=== PATIENT | male | born 1955 | race Caucasian/White ===

== ENCOUNTER → 2018-10-19 | Outpatient (CLI) | payer OTHER ==
--- NOTE | 2018-10-19 10:58 | KCIC ---
Examination: MRI of the right shoulder without contrast HISTORY: History of right shoulder pain COMPARISON: None available TECHNIQUE: Multiplanar, multisequence MR imaging of the right shoulder were performed without contrast FINDINGS: The long head of the biceps tendon within the bicipital groove. The attachment of the long head of the biceps tendon to the superior labral anchor grossly appears intact. The attachment of the subscapularis tendon grossly appears intact. There is mild increased signal identified in the subscapularis tendon likely mild tendinosis. There is full-thickness tear of the supraspinatus tendon with tendon retraction up to the level of the glenoid. There is extension of fluid into the subacromial subdeltoid bursa. There is moderate increased signal identified in the infraspinous tendon likely tendinosis. There is probable partial undersurface tear of the infraspinatus tendon at its attachment. The attachment of the teres minor tendon grossly appears intact. The muscle bulk grossly appears unremarkable. The acromion is type II. Moderate degenerative changes identified in the acromioclavicular joint and the glenohumeral joint. Mild increased signal identified throughout the labrum. IMPRESSION: 1. Full-thickness tear of the supraspinatus tendon with tendon retraction up to the level of the glenoid with extension of fluid into subacromial subdeltoid bursa. 2. Moderate tendinosis of the infraspinatus tendon. There is questionable partial undersurface tear of the infraspinatus tendon. 3. Moderate degenerative change acromioclavicular joint, glenohumeral joint. Electronically signed by: Reyes Magdaleno MD (10/19/2018 10:55 AM) [id number]
== END | disposition home or self-care (01) ==
LOC: KCIC MRI 09:48
PROVIDERS: ATTEND Physician Assistant Medical
DX: S46.011A Strain of muscle(s) and tendon(s) of the rotator cuff of right shoulder, initial encounter (principal); M19.011 Primary osteoarthritis, right shoulder; M75.81 Other shoulder lesions, right shoulder; X58.XXXA Exposure to other specified factors, initial encounter; Y93.89 Activity, other specified; Y92.89 Other specified places as the place of occurrence of the external cause; Y99.8 Other external cause status
CPT/HCPCS: 73221

== ENCOUNTER → 2018-12-01 | Outpatient (CLI) | payer OTHER ==
--- NOTE | 2018-12-01 15:48 | RAD ---
Ultrasound-guided left thyroid biopsy, 12/01/2018: HISTORY: Left thyroid nodule Under local anesthesia, aseptic conditions and sonographic guidance 4 separate 25-gauge aspirates were obtained from the left thyroid nodule via an anteromedial approach. The materials were sent to pathology for evaluation. Hemostasis was then obtained. The patient tolerated the procedure well and left the department in good condition. The pathology results are pending.
--- NOTE | 2018-12-05 12:06 | PATHOLOGY ---
Note [facility] Accession Number: [id number] TESTS RESULT FLAG UNITS REF RANGE LAB Clinician Provided Cytology Information No. of containers..01 Other (Miscellaneous) Source: LEFT THYROID DIAGNOSIS: LEFT THYROID NEGATIVE FOR MALIGNANT CELLS. [place] CATEGORY II. SPECIMEN CONSISTS OF BENIGN FOLLICULAR CELLS, HEMOSIDERIN-LADEN MACROPHAGES, COLLOID, AND BLOOD. THIS PATTERN IS CONSISTENT WITH A BENIGN PROCESS SUCH AN ADENOMATOID NODULE OR A COLLOID NODULE. ABUNDANT RED BLOOD CELLS ARE PRESENT. THIS INTERPRETATION INCLUDES EVALUATION OF A CELL BLOCK. Pathologist ICD10: 02 E04.1 Signed out by: Richard Martínez MD, Pathologist NPI- [id number] Performed by: Cristin Aleman, [employer] ([facility]) Gross description: 01 30ML, PINK, CLEAR /LCS FLAG LEGEND: L-Low Normal,H-High Normal,LL-Alert Low,HH-Alert High <-Panic Low,>-Panic High,A-Abnormal,AA-Critical Abnormal Performed at: [facility] [address] [facility] [address] [place] [address] Fer Maddox MD, [address] DAVE [facility] [address] [address] Anselmo Grigsby MD, Specimen Comment: A courtesy copy of this report has been sent to Specimen Comment: [phone], , . Specimen Comment: Report sent to ,DR ARCOS / DR GOLDSMITH Performed at: [address], [place], [place] [id number] MD Fer Maddox MD Phone: [phone]
== END | disposition home or self-care (01) ==
LOC: US 13:11
PROVIDERS: ATTEND Surgery
DX: E04.1 Nontoxic single thyroid nodule (principal)
CPT/HCPCS: 10005; 60300; 76942; 88173; 88305